=== PATIENT | male | born 1940 | race Caucasian/White ===

== ENCOUNTER 2016-06-10 06:35 | Emergency (ER) | payer MEDICARE ==
[2016-06-10] MEDS: SODIUM CHLORIDE 0.9% 1,000 ML IV ONE ×2 (07:17→12:47)
[2016-06-10] MEDS ORDERED: ONDANSETRON 4 MG/2 ML VIAL IVP STA ×2 (08:07→11:03)
[2016-06-10] MEDS ORDERED: ONDANSETRON 4 MG/2 ML VIAL ONE ×2 (08:09→11:06)
[2016-06-10] MEDS ORDERED: FOLIC ACID INJ 1 MG, THIAMINE INJ 100 MG, MAGNESIUM SULFATE 2 GM, MULTIVITAMIN 10 ML in... IV STA ×10 (08:15→10:07)
[2016-06-10] MEDS ORDERED: DEXAMETHASONE 10 MG/ML VIAL IVP STA (10:21)
[2016-06-10] MEDS ORDERED: cefTRIAXone 1 GM in SODIUM CHLORIDE 0.9% MINIBAG 100 ML IV STA (10:21)
[2016-06-10] MEDS ORDERED: DEXAMETHASONE 10 MG/ML VIAL ONE (10:25)
[2016-06-10] MEDS ORDERED: SODIUM CHLORIDE 0.9% MINIBAG 100 ML IV ONE (10:25)
[2016-06-10] MEDS ORDERED: cefTRIAXone 1 GM VIAL ONE (10:25)
[2016-06-10] MEDS ORDERED: SODIUM CHLORIDE 0.9% 1,000 ML IV ONE ×2 (12:40→15:13)
== END 2016-06-10 17:29 | disposition home or self-care (01) ==
DX: S32.10XA Unspecified fracture of sacrum, initial encounter for closed fracture (principal); S09.90XA Unspecified injury of head, initial encounter; W01.0XXA Fall on same level from slipping, tripping and stumbling without subsequent striking against object, initial encounter; Z91.81 History of falling; Y92.009 Unspecified place in unspecified non-institutional (private) residence as the place of occurrence of the external cause; F10.239 Alcohol dependence with withdrawal, unspecified; E87.2 Acidosis; E86.0 Dehydration; J01.30 Acute sphenoidal sinusitis, unspecified; I10 Essential (primary) hypertension; Z87.891 Personal history of nicotine dependence
CPT/HCPCS: 36415; 70450; 72100; 72220; 80053; 80306; 80307; 81001; 82009; 82803; 83605; 83690; 84484; 85025; 85610; 85730; 96361; 96365; 96375; 96376; 99284; 99285; G0480; J3411

== ENCOUNTER 2016-12-15 06:07 | Outpatient (CLI) | payer MEDICARE | END 2016-12-15 06:08 | disposition critical access hospital (66) | LOC: EMS 06:07 | PROVIDERS: ATTEND Surgery | DX: R06.02 Shortness of breath (principal) | CPT/HCPCS: A0425; A0427 ==

== ENCOUNTER 2016-12-15 06:35 | Emergency (ER) | payer MEDICARE ==
[2016-12-15 06:55] LABS: BILIRUBIN,URINE NEGATIVE (NEGATIVE); PH,URINE 6.5 PH (5.0-7.5)
[2016-12-15 06:57] LABS: UA CHARGE (STRIP ONLY) YES; UR CULTURE IF IND NOT INDICATED
[2016-12-15 07:02] LABS: BASOPHILS # (AUTO) 0.1 10^3/uL (0.0-0.1); BASOPHILS % (AUTO) 1.4 %; EOSINOPHILS % (AUTO) 0.7 %; HCT - HEMATOCRIT 47.9 % (42.0-52.0); HGB - HEMOGLOBIN 16.3 g/dL (14.0-18.0); LYMPHOCYTES # (AUTO) 0.7 10^3/uL (1.5-3.5); MEAN CORPUSCULAR HEMOGLOBIN 33.3 pg (27.0-31.0); MEAN CORPUSCULAR VOLUME 98.1 fL (80.0-94.0); MEAN PLATELET VOLUME 6.4 fL (7.4-11.4); MONOCYTES # (AUTO) 0.6 10^3/uL (0.0-1.0); MONOCYTES % (AUTO) 9.2 %; NEUTROPHILS # (AUTO) 5.2 10^3/uL (1.5-6.6); NEUTROPHILS % (AUTO) 77.7 %; NUCLEATED RED BLOOD CELLS AUTO 0.1 /100WBC; RED BLOOD COUNT 4.89 10^6/uL (4.70-6.10); UNCORRECTED WHITE BLOOD COUNT 6.7 x10^3/uL; WHITE BLOOD COUNT 6.7 x10^3/uL (4.8-10.8)
[2016-12-15 07:14] LABS: CALCIUM 8.6 mg/dL (8.5-10.3); CREATININE 0.7 mg/dL (0.6-1.2); POTASSIUM 3.5 mmol/L (3.5-5.0); TOTAL PROTEIN 7.6 g/dL (6.7-8.2)
--- NOTE | 2016-12-15 07:32 | XRAY Preliminary Report ---
Exam: XR Chest 1 View IMPRESSION: Increased interstitial markings, consider acute fluid overload or viral process versus ch ronic. Otherwise negative portable chest. [facility] SITE ID: [id number]
--- NOTE | 2016-12-15 07:34 | XRAY Report ---
EXAM: CHEST RADIOGRAPHY EXAM DATE: 12/15/2016 07:22 AM. CLINICAL HISTORY: Dyspnea. COMPARISON: None TECHNIQUE: 1 view. FINDINGS: Lungs/Pleura: Increased interstitial markings diffusely No focal opacities evident. No pleural effusi on. No pneumothorax. Mediastinum: Within exam limitations, cardiomediastinal contour is normal. Other: Slightly elevated right diaphragm. Subpulmonic fluid not excluded. IMPRESSION: Increased interstitial markings, consider acute fluid overload or viral process versus ch ronic. Otherwise negative portable chest. [facility] Referring Provider Line: [phone] SITE ID: [id number]
--- NOTE | 2016-12-15 07:54 | ED Physician Documentation ---
PD HPI DYSPNEA - Stated complaint Stated Complaint: SOA - Chief complaint Chief Complaint: Resp - History obtained from History obtained from: Patient, EMS - History of Present Illness Timing - onset: Enter time (1930), Today Timing - onset during: Rest Timing - duration: Hours Timing - details: Gradual onset, Still present Inciting event(s): URI, Allergic rxn/anaphylaxis Improved by: O2, Nitro, Lasix, Rest, Sitting up Worsened by: Exertion, Laying flat, Coughing, Allergens Associated symptoms: Cough. No: Fever, Wheezing, Chest pain / discomfort, Palpitations, Diaphoresis, Bilateral edema, Unilateral edema Similar symptoms before: Has not had sx before Recently seen: Not recently seen - Additional information Additional information: 76-year-old male with chronic alcoholism has developed acute shortness of breath beginning approximately 7:30 PM last night. He denies any chest pain associated with this but does note that throughout the entire night he became short of breath had exertional shortness of breath and was not able to lay flat. He felt he could catch his breath sitting up at the side of his bed.In route to the hospital the patient was noted to be extremely hypertensive 180/ 120 with wet sounding lungs and he was administered 6 L of nasal cannula oxygen , 1" Nitropaste, 40 mg of Lasix, 4 mg of Zofran and 4 mg of morphine. He is somewhat improved on arrival to the emergency department. He continues to have some shortness of breath when he gets up to the side of the bed to urinate. He indicates that this summer he has had some issues with allergic shortness of breath especially when he was out mowing his lawn. He has had this issue for years. He is also developed a cough which is productive and the shortness of breath that he had last night was different than what he has had the rest of the summer.He does state that he is recently been drinking more than usual. He is able to consume about half a gallon in 3 days. Review of Systems Constitutional: denies: Fever, Chills Eyes: denies: Decreased vision Ears: denies: Ear pain Nose: denies: Rhinorrhea / runny nose, Congestion Throat: denies: Sore throat Cardiac: denies: Chest pain / pressure, Palpitations, Pedal edema, Calf pain Respiratory: reports: Dyspnea, Cough. denies: Hemoptysis, Wheezing GI: denies: Abdominal Pain, Nausea, Vomiting : denies: Dysuria, Frequency Skin: denies: Rash Musculoskeletal: denies: Neck pain, Back pain Neurologic: denies: Generalized weakness, Focal weakness, Numbness PD PAST MEDICAL HISTORY - Past Medical History Past Medical History: Yes Cardiovascular: Hypertension Respiratory: None Neuro: None Endocrine/Autoimmune: None GI: None : Incontinence HEENT: Chronic hearing loss Psych: Other Musculoskeletal: None Derm: Other Other Past Medical History: ALCOHOLISM... - Past Surgical History Past Surgical History: Yes HEENT: Tonsil/Adenoidectomy - Present Medications Home Medications: Ambulatory Orders Medication Instructions Recorded Confirmed Hydrochlorothiazide 1 tab PO DAILY 12/15/16 12/15/16 - Allergies Allergies/Adverse Reactions: Allergies Allergy/AdvReac Type Severity Reaction Status Date / Time No Known Drug Allergies Allergy Verified 12/15/16 06:47 - Social History Does the pt smoke?: No Smoking Status: Former smoker Does the pt drink ETOH?: Yes Does the pt have substance abuse?: Yes - Immunizations Immunizations are current?: No - POLST Patient has POLST: No PD ED PE NORMAL - Vitals Vital signs reviewed: Yes (hypertensive ) - General General: Alert and oriented X 3, Well developed/nourished, Other (mild tachypnea at rest) - HEENT HEENT: Atraumatic, PERRL, EOMI, Other (mild inflammation to the left TM) - Neck Neck: Supple, no meningeal sign, No bony TTP - Cardiac Cardiac: No murmur, Other (tachy to 110) - Respiratory Respiratory: Clear bilaterally, Other (tachypnea at rest) - Abdomen Abdomen: Soft, Non tender - Back Back: No CVA TTP, No spinal TTP - Derm Derm: Normal color, Warm and dry, No rash - Extremities Extremities: No deformity, No edema - Neuro Neuro: Alert and oriented X 3, No motor deficit, No sensory deficit, Normal speech - Psych Psych: Normal mood, Normal affect Results - Vitals Vitals: Vital Signs - 24 hr 12/15/16 12/15/16 12/15/16 06:43 07:30 08:42 Temperature 36.4 C L Heart Rate 70 115 H 101 H Respiratory 20 22 22 Rate Blood Pressure 166/99 H 146/95 H 132/90 H O2 Saturation 99 96 98 12/15/16 12/15/16 12/15/16 10:09 11:14 12:31 Temperature Heart Rate 98 95 93 Respiratory 24 22 15 Rate Blood Pressure 115/78 114/76 122/75 O2 Saturation 98 98 97 12/15/16 13:29 Temperature Heart Rate 92 Respiratory 16 Rate Blood Pressure 134/80 H O2 Saturation 97 Oxygen O2 Source Room air - EKG (time done) 0656 Rate: Rate (enter#) (101) Rhythm: Sinus tachycardia [place]: LAD Intervals: Prolonged QT QRS: Poor R wave progression Ischemia: T wave inversion (V2,3) Compare to prior EKG: Old EKG unavailable Computer interpretation: Agree with computer - Labs Labs: Laboratory Tests 12/15/16 12/15/16 12/15/16 06:35 06:54 06:54 WBC 6.7 RBC 4.89 Hgb 16.3 Hct 47.9 MCV 98.1 H MCH 33.3 H MCHC 34.0 RDW 18.0 H Plt Count 285 MPV 6.4 L Neut # 5.2 Lymph # 0.7 L [place] # 0.6 Eos # 0.0 Baso # 0.1 Absolute Nucleated RBC 0.00 Nucleated RBCs 0.1 Sodium 141 Potassium 3.5 Chloride 100 L Carbon Dioxide 23 Anion Gap 18.0 H BUN 9 Creatinine 0.7 Estimated GFR (MDRD) 110 Glucose 129 H Calcium 8.6 Magnesium Total Bilirubin 1.0 AST 32 ALT 22 Alkaline Phosphatase 74 Troponin I B-Natriuretic Peptide Total Protein 7.6 Albumin 3.8 Globulin 3.8 Albumin/Globulin Ratio 1.0 Lipase 18 L Urine Color YELLOW Urine Clarity CLEAR Urine pH 6.5 Ur Specific [place] 1.010 Urine Protein NEGATIVE Urine Glucose (UA) NEGATIVE Urine Ketones TRACE Urine Occult Blood NEGATIVE Urine Nitrite NEGATIVE Urine Bilirubin NEGATIVE Urine Urobilinogen 0.2 (NORMAL) Ur Leukocyte Esterase NEGATIVE Ur Microscopic Review NOT INDICATED Urine Culture Comments NOT INDICATED Ethyl Alcohol 12/15/16 12/15/16 12/15/16 06:54 06:54 06:54 WBC RBC Hgb Hct MCV MCH MCHC RDW Plt Count MPV Neut # Lymph # [place] # Eos # Baso # Absolute Nucleated RBC Nucleated RBCs Sodium Potassium Chloride Carbon Dioxide Anion Gap BUN Creatinine Estimated GFR (MDRD) Glucose Calcium Magnesium Total Bilirubin AST ALT Alkaline Phosphatase Troponin I 0.18 B-Natriuretic Peptide 332 H Total Protein Albumin Globulin Albumin/Globulin Ratio Lipase Urine Color Urine Clarity Urine pH Ur Specific [place] Urine Protein Urine Glucose (UA) Urine Ketones Urine Occult Blood Urine Nitrite Urine Bilirubin Urine Urobilinogen Ur Leukocyte Esterase Ur Microscopic Review Urine Culture Comments Ethyl Alcohol 35.8 12/15/16 06:56 WBC RBC Hgb Hct MCV MCH MCHC RDW Plt Count MPV Neut # Lymph # [place] # Eos # Baso # Absolute Nucleated RBC Nucleated RBCs Sodium Potassium Chloride Carbon Dioxide Anion Gap BUN Creatinine Estimated GFR (MDRD) Glucose Calcium Magnesium 1.4 L Total Bilirubin AST ALT Alkaline Phosphatase Troponin I B-Natriuretic Peptide Total Protein Albumin Globulin Albumin/Globulin Ratio Lipase Urine Color Urine Clarity Urine pH Ur Specific [place] Urine Protein Urine Glucose (UA) Urine Ketones Urine Occult Blood Urine Nitrite Urine Bilirubin Urine Urobilinogen Ur Leukocyte Esterase Ur Microscopic Review Urine Culture Comments Ethyl Alcohol PD MEDICAL DECISION MAKING - ED course Complexity details: reviewed old records, reviewed results, re-evaluated patient , considered differential, d/w patient ED course: 76 y/o male with chronic alcohol use has developed acute dyspnea and appears on evaluation to have some CHF and he was treated in the field with some improvement. He does have elevation of trop and BNP to low levels. I suspect holiday heart. I have encouraged the patient to come into the hospital for treatment of this and he refuses. He really wants to go home. He does have improvement with his treatment and here in the emergency department we have begun a banana bag with some magnesium as well and he is continuing to refuse admission. I discussed with him potential benefits from admission and potential harm related to going home without further treatment and evaluation. He is steadfast about going home and will sign out AGAINST MEDICAL ADVICE. Here in the emergency department I believe we have treated him adequately to make this potentially safe. Departure - Departure Disposition: Home, Self Care Clinical Impression: Alcoholic cardiomyopathy Condition: Stable Instructions: ED CHF General Follow-Up: Rosie Mayer PA-C [Primary Care Provider] - Comments: Today it appears your heart is failing related to excessive alcohol consumption. Discontinue all use of alcohol currently as this will improve your heart's ability to perform it's duties. If you have excessive symptoms of withdrawal from alcohol use the Ativan previously prescribed. We understand you are leaving against our advice and there is a chance that you will have recurrence of your symptoms and you may need to return to the hospital. We will be here to treat you.
[2016-12-15] MEDS ORDERED: MAGNESIUM SULFATE 2 GRAM 50 ML IV STA (08:10)
[2016-12-15] MEDS ORDERED: THIAMINE INJ 100 MG, FOLIC ACID INJ 1 MG in SODIUM CHLORIDE 0.9% 100ML 100 ML IV STA (08:10)
[2016-12-15] MEDS ORDERED: MULTIVITAMIN 10 ML in SODIUM CHLORIDE 0.9% 1,000 ML IV STA (08:10)
[2016-12-15] MEDS ORDERED: MAGNESIUM SULFATE 2 GRAM 50 ML IV ONE (10:07)
[2016-12-15] MEDS ORDERED: SODIUM CHLORIDE FLUSH 0.9% 10 ML SYRINGE IVP ONE (10:08)
[2016-12-15 15:27] VITALS: BP 137/78
== END 2016-12-15 15:32 | disposition home or self-care (01) ==
LOC: EDUNIT# → ED 06:35
DX: I42.6 Alcoholic cardiomyopathy (principal); I10 Essential (primary) hypertension; Z87.891 Personal history of nicotine dependence
CPT/HCPCS: 36415; 71010; 80053; 81003; 83690; 83735; 83880; 84484; 85025; 93005; 96365; 96366; 96375; 99284; 99285; G0480; J3411; 80320; 81001; 87086

== ENCOUNTER 2017-02-17 14:35 | Outpatient (CLI) | payer MEDICARE ==
[2017-02-17 19:20] LABS: ALBUMIN/GLOBULIN RATIO 1.3 (1.0-2.2); BILIRUBIN,TOTAL 0.6 mg/dL (0.2-1.0); BUN - BLOOD UREA NITROGEN 15 mg/dL (6-20); CALCIUM 9.5 mg/dL (8.5-10.3); CARBON DIOXIDE - CO2 28 mmol/L (21-32); CHLORIDE 99 mmol/L (101-111); CHOL/HDL RATIO 3.4 (<5.0); CHOLESTEROL 226 mg/dL; CREATININE 0.9 mg/dL (0.6-1.2); GFR - MDRD 82 (>89); GLUCOSE 104 mg/dL (70-100); HDL CHOLESTEROL 67 mg/dL; LDL/HDL RATIO 2.1 (<3.6); MAGNESIUM 1.7 mg/dL (1.7-2.8); POTASSIUM 4.5 mmol/L (3.5-5.0); SODIUM 136 mmol/L (135-145); TOTAL PROTEIN 7.5 g/dL (6.7-8.2); TRIGLYCERIDES 104 mg/dL; VLDL CHOLESTEROL 21 mg/dL
== END 2017-02-17 14:36 | disposition home or self-care (01) ==
LOC: LAB.WCP 14:35
PROVIDERS: ATTEND Physician Assistant Medical
DX: E78.5 Hyperlipidemia, unspecified (principal); F10.10 Alcohol abuse, uncomplicated; Z12.5 Encounter for screening for malignant neoplasm of prostate
CPT/HCPCS: 36415; 80053; 80061; 83735; G0103; 84153

== ENCOUNTER 2017-02-20 08:15 | Outpatient (CLI) | payer MEDICARE ==
--- NOTE | 2017-02-20 16:26 | Ultrasound Report ---
EXAM: ABDOMEN ULTRASOUND LIMITED, RUQ EXAM DATE: 02/20/2017 09:34 AM. CLINICAL HISTORY: ALCOHOL ABUSE. COMPARISON: None. TECHNIQUE: Real-time scanning was performed with static images obtained. FINDINGS: Liver: 13.4 cm in size. Increased echogenicity. Heterogeneous echotexture. Nodular contour. Main port al vein flow: Hepatopetal. Cysts within the liver measuring 5 and 15 mm each. Gallbladder: 7.5 mm non-mobile echogenic lesion along the nondependent portion of the gallbladder wal l. This is compatible with a polyp. No stones, wall thickening, or sonographic Rodriguez's sign. Biliary System: CBD measures 3.4 mm. No intrahepatic or extrahepatic ductal dilatation. Right kidney: 10.6 x 5.7 x 5.2 cm. No hydronephrosis. Normal echogenicity. Pancreas: Nonvisualized due to obscuration by bowel gas. Other: The epigastric area secured. Visualized segments of the aorta and IVC are challenging. On the image of the IVC, there is an echogenic structure posteriorly is of unclear clinical significant give n that this area is poorly visualized. IMPRESSION: 1. Increased echogenicity, nodular contour, and heterogeneous echotexture of the liver is compatible with hepatocellular disease such as cirrhosis. 2. 7.5 mm gallbladder polyp. Size is the most useful predictor of malignancy. Cholecystectomy is cruz mmended if the patient is symptomatic or has cholelithiasis or PSC (regardless of polyp size). For po lyps 6-9 mm, serial follow-up at 3, 6, and 12 months is recommended. 3. Echogenic structure posteriorly along the IVC is of unclear clinical significance given that this area is poorly visualized secondary to marked obscuration by bowel gas. It is possible this is the po sterior wall of the IVC, venous valve, partial thrombosis, or artifact. Further evaluation with dedic ated retroperitoneal ultrasound or CT scan can be performed at clinical discretion. [facility] Referring Provider Line: [phone] SITE ID: [id number]
== END 2017-02-20 08:16 | disposition home or self-care (01) ==
LOC: DI 08:15
PROVIDERS: ATTEND Physician Assistant Medical
DX: I50.9 Heart failure, unspecified (principal); F10.10 Alcohol abuse, uncomplicated; K82.4 Cholesterolosis of gallbladder
CPT/HCPCS: 76705; 93306

== ENCOUNTER 2017-10-16 15:20 | Outpatient (CLI) | payer MEDICARE | END 2017-10-16 15:21 | disposition E | LOC: EMS 15:20 | PROVIDERS: ATTEND Surgery ==